=== PATIENT | female | born 1945 | race Caucasian/White ===

== ENCOUNTER 2017-04-05 09:49 | Inpatient (IN) | payer OTHER, BC ==
[~2017-04-05] VITALS: Ht 152.4 cm; Wt 65.2 kg
[2017-04-05 10:34] LABS: BASE EXCESS 0.2 mEq/L (-3 to +3); BICARBONATE 26.9 mEq/L (22-26); CARBOXY HGB 2.1 % (0-5); METHEMOGLOBIN 0.9 % (0-1.5); PCO2 51 mm Hg (35-45); PO2 55 mm Hg (80-100); pH 7.33 (7.35-7.45)
[2017-04-05 10:35] LABS: COMMENTS - BLOOD GASES C+; DEVICE HIGH FLOW NC; O2 FLOW 15 L/MIN; SITE RR; TOTAL RESP RATE 18 resp/min
[2017-04-05 11:04] LABS: EOSINOPHIL (%) 2.4 % (0-5); EOSINOPHIL COUNT 0.4 K/uL (0-0.3); HEMATOCRIT 37.8 % (36.0-46.0); IMMATURE GRANULOCYTE (%) 0.4 % (0.0-0.7); IMMATURE GRANULOCYTE COUNT 0.1 K/uL; INSTRUMENT ABS NEUTROPHIL CT 13.1 K/uL; LYMPHOCYTE COUNT 0.9 K/uL (1.0-2.8); MCH 31.9 PG (29.0-34.0); MCHC 32.3 G/DL (30.0-36.0); MEAN PLAT.VOLUME 10.5 uM^3 (9.5-12.4); MONOCYTE (%) 8.3 % (3-12); MONOCYTE COUNT 1.3 K/uL (0-0.8); NEUTROPHIL (%) 83.1 % (45-76); NEUTROPHIL COUNT 13.1 K/uL (1.8-6.4); PLATELET COUNT 250 K/uL (156-360); RBC DIS.WIDTH-CV 13.5 % (11.8-14.6); RBC DIS.WIDTH-SD 49.5 % (39-53); RED BLOOD COUNT 3.82 M/uL (3.80-5.20); WHITE BLOOD COUNT 15.7 K/uL (4.1-10.2)
[2017-04-05 11:11] LABS: PROTHROMBIN TIME 11.4 SEC (10.2-12.9)
[2017-04-05 11:13] LABS: PTT 29.3 SEC (25-37)
[2017-04-05 11:24] LABS: CHLORIDE 105 mEq/L (99-109); POTASSIUM 5.5 mEq/L (3.7-5.4); SODIUM 139 mEq/L (136-147)
[2017-04-05 11:26] LABS: GLUCOSE 103 mg/dL (70-99)
[2017-04-05 11:27] LABS: ANION GAP 15 MEQ/L (2-14)
[2017-04-05 11:28] LABS: TOTAL BILIRUBIN 0.7 mg/dL (0.0-1.0)
[2017-04-05 11:29] LABS: ALKALINE PHOSPHATASE 245 IU/L (3-129)
[2017-04-05 11:30] LABS: GFR ESTIMATE (CALCULATED) > 59 mL/min/
[2017-04-05 11:31] LABS: UREA NITROGEN (BUN) 27 mg/dL (9-23)
[2017-04-05 11:33] LABS: CREATINE KINASE 240 IU/L (1-294); TOTAL CK 240 IU/L (1-294)
[2017-04-05 11:33] LABS: TROP-I INTERPRETATION NEGATIVE; TROPONIN-I < 0.01 ng/mL (0.0-0.30)
[2017-04-05 11:35] LABS: BASE EXCESS -1.2 mEq/L (-3 to +3); CARBOXY HGB 1.8 % (0-5); METHEMOGLOBIN 1.2 % (0-1.5); PCO2 54 mm Hg (35-45)
[2017-04-05 11:36] LABS: COMMENTS - BLOOD GASES A+C+; O2 FLOW 50 L/MIN; PO2 117 mm Hg (80-100); SITE RR; pH 7.29 (7.35-7.45)
[2017-04-05 11:37] LABS: TOTAL RESP RATE 20 resp/min
[2017-04-05 11:38] LABS: CK-MB 6.6 ng/mL (0.0-4.9)
[2017-04-05 11:40] LABS: FI02 100 %
[2017-04-05] MEDS ORDERED: RESTASIS MULTI5.5 ML BOTH EYES (12:56)
[2017-04-05] MEDS ORDERED: TIZANIDINE HCL2 MG PO (12:59)
[2017-04-05] MEDS ORDERED: GABAPENTIN800 MG PO (13:05)
[2017-04-05] MEDS ORDERED: CELEBREX200 MG PO (13:08)
[2017-04-05] MEDS ORDERED: ROBAXIN750 MG PO (13:08)
[2017-04-05] MEDS ORDERED: SALAGEN5 MG PO (13:12)
[2017-04-05] MEDS ORDERED: BETAMETHASONE D15 GM TP (13:12)
[2017-04-05] MEDS ORDERED: FIORICET 50-301 EACH PO (13:14)
[2017-04-05] MEDS ORDERED: AMITRIPTYLINE H75 MG PO (13:15)
[2017-04-05] MEDS ORDERED: MIDRIN1 CAPSULE PO (13:17)
[2017-04-05] MEDS ORDERED: ADVAIR 250/501 DISK IH (13:17)
[2017-04-05] MEDS ORDERED: INDERAL60 MG PO (13:17)
[2017-04-05] MEDS ORDERED: VAGIFEM10 MCG VG (13:18)
[2017-04-05] MEDS ORDERED: TUDORZA PRESS400 MCG IH (13:18)
[2017-04-05] MEDS ORDERED: PAXIL10 MG PO (13:18)
[2017-04-05] MEDS ORDERED: PROAIR RESPICL90 MCG IH (13:19)
[2017-04-05] MEDS ORDERED: 24 HOUR ALLER15.8 ML BOTH NARES (13:47)
[2017-04-05] MEDS ORDERED: LOMOTIL TABLET1 EACH PO (13:49)
[2017-04-05] MEDS ORDERED: AMPHOTERICIN BOTH NARES (13:49)
[2017-04-05] MEDS ORDERED: VIBERZI100 MG PO (13:50)
[2017-04-05] MEDS ORDERED: MULTI-VITAMIN1 EAC4 PO (13:51)
[2017-04-05] MEDS ORDERED: BIOTIN 5000MCG PO (13:51)
[2017-04-05] MEDS ORDERED: ADVIL,NUPRIN,M200 MG PO (13:52)
[2017-04-05] MEDS ORDERED: ACETAMINOPHEN325 M1 PO (13:52)
[2017-04-05] MEDS ORDERED: PSEUDOEPHEDRINE60 MG PO (13:53)
[2017-04-05] MEDS ORDERED: CO Q-10300 MG PO (13:53)
[2017-04-05] MEDS ORDERED: CRANBERRY405 MG PO (13:54)
[2017-04-05] MEDS ORDERED: GLUCOSAMINE-MS1 EAC3 PO (13:57)
[2017-04-05] MEDS ORDERED: RANITIDINE HCL150 MG PO (13:58)
[2017-04-05] MEDS ORDERED: VITAMIN D31000 UNI2 PO (13:59)
[2017-04-05] MEDS ORDERED: MUCINEX1200 MG PO (13:59)
[2017-04-05] MEDS ORDERED: IMODIUM A-D2 M2 PO (14:00)
[2017-04-05] MEDS ORDERED: PRESERVISION A1 EAC2 PO (14:01)
[2017-04-05] MEDS ORDERED: LORATADINE10 M2 PO (14:01)
[2017-04-05 14:18] LABS: ADD MIUA? NO; BILIRUBIN NEGATIVE; BLOOD NEGATIVE; COLOR YELLOW ((YELLOW)); GLUCOSE (STRIP) NEGATIVE; KETONES NEGATIVE; LEUKOCYTES NEGATIVE; NITRITE NEGATIVE; PROTEIN (STRIP) NEGATIVE; SPECIFIC GRAVITY 1.016 (1.000-1.030); UCUL ADDED? NO; UROBILINOGEN 0.2 MG/DL (0.2-1.0)
[2017-04-05] MEDS ORDERED: OMEPRAZOLE40 M1 PO (14:18)
[2017-04-05 15:14] VITALS: BP 129/65
[2017-04-05 16:43] LABS: BASE EXCESS -0.9 mEq/L (-3 to +3); BICARBONATE 26.4 mEq/L (22-26); CARBOXY HGB 1.3 % (0-5); METHEMOGLOBIN 1.6 % (0-1.5); PCO2 55 mm Hg (35-45); PO2 90 mm Hg (80-100); pH 7.29 (7.35-7.45)
[2017-04-05 16:44] VITALS: BP 142/77
[2017-04-05 16:44] LABS: COMMENTS - BLOOD GASES +C; DEVICE HHFNC; FI02 80 %; O2 FLOW 50 L/MIN; SITE RR +A; TOTAL RESP RATE 10 resp/min
[2017-04-05 17:04] LABS: ANION GAP 7 MEQ/L (2-14); CHLORIDE 105 MEQ/L (99-109); GFR ESTIMATE (CALCULATED) > 59 mL/min/; GLUCOSE 149 mg/dL (70-99); SAMPLE HEMOLYSIS CHECK 0; SAMPLE ICTERIC CHECK 0; SAMPLE LIPEMIA CHECK 0; SODIUM 136 MEQ/L (136-147); UREA NITROGEN (BUN) 24 mg/dL (9-23)
[2017-04-05 17:05] LABS: POINT-OF-CARE METER ID UU13113698
[2017-04-05 17:13] LABS: HEMATOCRIT 35.4 % (36.0-46.0); MCH 33.1 PG (29.0-34.0); MCHC 33.1 G/DL (30.0-36.0); MCV 100.3 FL (83-99); MEAN PLAT.VOLUME 10.4 uM^3 (9.5-12.4); PLATELET COUNT 245 K/uL (156-360); RBC DIS.WIDTH-CV 13.7 % (11.8-14.6); RBC DIS.WIDTH-SD 50.1 % (39-53); RED BLOOD COUNT 3.53 M/uL (3.80-5.20); WHITE BLOOD COUNT 21.8 K/uL (4.1-10.2)
[2017-04-05 17:37] LABS: ANION GAP 9 MEQ/L (2-14); CHLORIDE 106 MEQ/L (99-109); POTASSIUM 5.2 MEQ/L (3.7-5.4); SAMPLE HEMOLYSIS CHECK 1; SAMPLE ICTERIC CHECK 0; SAMPLE LIPEMIA CHECK 0; SODIUM 138 MEQ/L (136-147); TOTAL BILIRUBIN 0.5 MG/DL (0.0-1.0)
[2017-04-05 17:43] LABS: ALKALINE PHOSPHATASE 210 IU/L (3-129); GFR ESTIMATE (CALCULATED) > 59 mL/min/; GLUCOSE 151 mg/dL (70-99); UREA NITROGEN (BUN) 24 mg/dL (9-23)
[2017-04-05 18:35] LABS: EOSINOPHIL (%) 0 % (0-5); IMMATURE GRANULOCYTE (%) 0.6 % (0.0-0.7); IMMATURE GRANULOCYTE COUNT 0.1 K/uL; LYMPHOCYTE COUNT 0.8 K/uL (1.0-2.8); MONOCYTE (%) 3.5 % (3-12); MONOCYTE COUNT 0.8 K/uL (0-0.8); PLAT.SUFFICIENCY ADEQUATE
[2017-04-05 19:00] VITALS: BP 135/71
[2017-04-05 23:43] VITALS: BP 128/69
[2017-04-06 04:10] VITALS: BP 143/79
[2017-04-06 05:12] LABS: EOSINOPHIL (%) 0 % (0-5); HEMATOCRIT 33.3 % (36.0-46.0); IMMATURE GRANULOCYTE (%) 0.7 % (0.0-0.7); IMMATURE GRANULOCYTE COUNT 0.1 K/uL; INSTRUMENT ABS NEUTROPHIL CT 16.8 K/uL; MCH 31.4 PG (29.0-34.0); MCHC 31.2 G/DL (30.0-36.0); MCV 100.6 FL (83-99); MEAN PLAT.VOLUME 10.1 uM^3 (9.5-12.4); MONOCYTE (%) 2.2 % (3-12); MONOCYTE COUNT 0.4 K/uL (0-0.8); NEUTROPHIL (%) 91.6 % (45-76); NEUTROPHIL COUNT 16.8 K/uL (1.8-6.4); PLATELET COUNT 246 K/uL (156-360); RBC DIS.WIDTH-CV 13.6 % (11.8-14.6); RBC DIS.WIDTH-SD 50.5 % (39-53); RED BLOOD COUNT 3.31 M/uL (3.80-5.20); WHITE BLOOD COUNT 18.4 K/uL (4.1-10.2)
[2017-04-06 05:42] LABS: ALKALINE PHOSPHATASE 180 IU/L (3-129); ANION GAP 8 MEQ/L (2-14); CHLORIDE 109 MEQ/L (99-109); CREATINE KINASE 115 IU/L (1-294); DIRECT BILIRUBIN 0.1 mg/dL (0.0-0.3); GFR ESTIMATE (CALCULATED) > 59 mL/min/; GLUCOSE 129 mg/dL (70-99); POTASSIUM 4.8 MEQ/L (3.7-5.4); SAMPLE HEMOLYSIS CHECK 0; SAMPLE ICTERIC CHECK 0; SAMPLE LIPEMIA CHECK 0; SODIUM 142 MEQ/L (136-147); TOTAL BILIRUBIN 0.4 MG/DL (0.0-1.0); UREA NITROGEN (BUN) 24 mg/dL (9-23)
[2017-04-06 08:24] VITALS: BP 131/73
[2017-04-06 08:37] LABS: BASE EXCESS -1.8 mEq/L (-3 to +3); BICARBONATE 24.3 mEq/L (22-26); CARBOXY HGB 0.8 % (0-5); COMMENTS - BLOOD GASES A+C+; DEVICE NC; METHEMOGLOBIN 1.1 % (0-1.5); O2 FLOW 2 L/MIN; PCO2 46 mm Hg (35-45); PO2 83 mm Hg (80-100); SITE LRA; pH 7.33 (7.35-7.45)
[2017-04-06 08:38] LABS: TOTAL RESP RATE 14 resp/min
[2017-04-06 11:35] VITALS: BP 130/79
[2017-04-06 15:57] VITALS: BP 130/82
[2017-04-06 20:15] VITALS: BP 179/82
[2017-04-07] VITALS (9 sets, daily range): BP systolic 138–198; BP diastolic 77–99
[2017-04-07 02:45] LABS: TROP-I INTERPRETATION NEGATIVE; TROPONIN-I 0.03 ng/mL (0.0-0.30)
[2017-04-07 04:19] LABS: EOSINOPHIL (%) 0 % (0-5); HEMATOCRIT 30.8 % (36.0-46.0); IMMATURE GRANULOCYTE (%) 1.3 % (0.0-0.7); IMMATURE GRANULOCYTE COUNT 0.2 K/uL; INSTRUMENT ABS NEUTROPHIL CT 13.3 K/uL; LYMPHOCYTE COUNT 0.8 K/uL (1.0-2.8); MCH 32.2 PG (29.0-34.0); MCHC 32.5 G/DL (30.0-36.0); MEAN PLAT.VOLUME 10.5 uM^3 (9.5-12.4); MONOCYTE (%) 4.2 % (3-12); MONOCYTE COUNT 0.6 K/uL (0-0.8); NEUTROPHIL (%) 89.3 % (45-76); NEUTROPHIL COUNT 13.3 K/uL (1.8-6.4); PLATELET COUNT 235 K/uL (156-360); RBC DIS.WIDTH-CV 13.8 % (11.8-14.6); RBC DIS.WIDTH-SD 50.5 % (39-53); RED BLOOD COUNT 3.11 M/uL (3.80-5.20); WHITE BLOOD COUNT 14.9 K/uL (4.1-10.2)
[2017-04-07 04:43] LABS: CHLORIDE 112 mEq/L (99-109); POTASSIUM 4.8 mEq/L (3.7-5.4); SODIUM 141 mEq/L (136-147)
[2017-04-07 04:44] LABS: TROP-I INTERPRETATION NEGATIVE; TROPONIN-I < 0.01 ng/mL (0.0-0.30)
[2017-04-07 04:46] LABS: GLUCOSE 141 mg/dL (70-99)
[2017-04-07 04:47] LABS: ANION GAP 10 MEQ/L (2-14)
[2017-04-07 04:49] LABS: ALKALINE PHOSPHATASE 185 IU/L (3-129); GFR ESTIMATE (CALCULATED) > 59 mL/min/
[2017-04-07 04:50] LABS: UREA NITROGEN (BUN) 25 mg/dL (9-23)
[2017-04-07 04:51] LABS: DIRECT BILIRUBIN 0.2 mg/dL (0.0-0.3)
[2017-04-07 04:54] LABS: TOTAL BILIRUBIN 0.2 mg/dL (0.0-1.0)
[2017-04-07 12:36] LABS: TROP-I INTERPRETATION NEGATIVE; TROPONIN-I 0.02 ng/mL (0.0-0.30)
[2017-04-08] VITALS (10 sets, daily range): BP systolic 127–197; BP diastolic 67–106
[2017-04-08 08:57] LABS: EOSINOPHIL (%) 0 % (0-5); HEMATOCRIT 35.8 % (36.0-46.0); IMMATURE GRANULOCYTE (%) 2.3 % (0.0-0.7); IMMATURE GRANULOCYTE COUNT 0.2 K/uL; INSTRUMENT ABS NEUTROPHIL CT 8.6 K/uL; LYMPHOCYTE COUNT 0.7 K/uL (1.0-2.8); MCH 31.4 PG (29.0-34.0); MCHC 32.4 G/DL (30.0-36.0); MCV 96.8 FL (83-99); MEAN PLAT.VOLUME 10.3 uM^3 (9.5-12.4); MONOCYTE (%) 6.9 % (3-12); MONOCYTE COUNT 0.7 K/uL (0-0.8); NEUTROPHIL COUNT 8.6 K/uL (1.8-6.4); PLATELET COUNT 287 K/uL (156-360); RBC DIS.WIDTH-CV 13.3 % (11.8-14.6); RBC DIS.WIDTH-SD 47.8 % (39-53); WHITE BLOOD COUNT 10.2 K/uL (4.1-10.2)
[2017-04-08 09:44] LABS: ANION GAP 11 MEQ/L (2-14); CHLORIDE 102 MEQ/L (99-109); GFR ESTIMATE (CALCULATED) > 59 mL/min/; GLUCOSE 122 mg/dL (70-99); SAMPLE HEMOLYSIS CHECK 0; SAMPLE ICTERIC CHECK 0; SAMPLE LIPEMIA CHECK 0; SODIUM 143 MEQ/L (136-147); UREA NITROGEN (BUN) 18 mg/dL (9-23)
[2017-04-08 09:46] LABS: POTASSIUM 3.7 MEQ/L (3.7-5.4)
[2017-04-09 04:23] VITALS: BP 132/104
[2017-04-09 07:30] VITALS: BP 165/101
[2017-04-09 11:38] VITALS: BP 136/86
[2017-04-09 16:01] VITALS: BP 139/92
[2017-04-09 19:32] VITALS: BP 168/96
[2017-04-09 23:03] VITALS: BP 159/88
[2017-04-10 03:00] VITALS: BP 147/78
[2017-04-10 07:23] VITALS: BP 133/81
[2017-04-10 10:35] VITALS: BP 131/91
[2017-04-10] MEDS ORDERED: LISINOPRIL20 MG PO (11:04)
[2017-04-10] MEDS ORDERED: PREDNISONE5 MG PO (11:04)
[2017-04-10] MEDS ORDERED: DUONEB 2.5-0.5 M3 ML AEROSOL (11:04)
[2017-04-10] MEDS ORDERED: CEFTIN250 MG PO (11:04)
[2017-04-10] MEDS ORDERED: SPIRIVA RESPIMAT4 GM IH (11:04)
[2017-04-10] MEDS ORDERED: NYSTATIN-TRIAMC15 GM TP (11:04)
[2017-04-10] MEDS ORDERED: DIGOXIN125 MCG PO (11:04)
== END 2017-04-10 13:15 | disposition home health service (06) | DRG 189 ==
LOC: EME 09:49 → EDOF 13:01 → 4EAST 13:01 → ENRESERV 13:05 → 4EAST 14:35 → ENPENDDIS 04-10 → 4EAST 04-10 13:15
PROVIDERS: Emergency Medicine; Internal Medicine; Internal Medicine Pulmonary Disease
DX: J96.21 Acute and chronic respiratory failure with hypoxia (principal); J44.0 Chronic obstructive pulmonary disease with (acute) lower respiratory infection; J18.9 Pneumonia, unspecified organism; J44.1 Chronic obstructive pulmonary disease with (acute) exacerbation; E87.2 Acidosis; E87.5 Hyperkalemia; I48.0 Paroxysmal atrial fibrillation; G25.3 Myoclonus; Z99.81 Dependence on supplemental oxygen; I27.2 Other secondary pulmonary hypertension; I34.0 Nonrheumatic mitral (valve) insufficiency; R41.82 Altered mental status, unspecified; R74.0 Nonspecific elevation of levels of transaminase and lactic acid dehydrogenase [LDH]; I10 Essential (primary) hypertension; I73.00 Raynaud's syndrome without gangrene; K44.9 Diaphragmatic hernia without obstruction or gangrene; K58.0 Irritable bowel syndrome with diarrhea; H04.129 Dry eye syndrome of unspecified lacrimal gland; Z91.81 History of falling; Z87.891 Personal history of nicotine dependence; Z87.01 Personal history of pneumonia (recurrent); Z98.1 Arthrodesis status; Z72.89 Other problems related to lifestyle; Z80.0 Family history of malignant neoplasm of digestive organs; Z80.1 Family history of malignant neoplasm of trachea, bronchus and lung
CPT/HCPCS: 36600; 70450; 71010; 73501; 76705; 80048; 80048 91; 80053; 80076; 81003; 82140; 82550; 82553; 82803; 82948; 83605; 83880; 84484; 85025; 85025 91; 85610; 85730; 87040; 93005; 93306; 94640; 94640 76; 94667; 94668; 94760; 94799; 95819; 97530 GP; 99202; 99281; 99285; J0360; J0456; J0696; J1160; J1650; J1953; J2930; J7030; J7050; J7512